=== PATIENT | male | born 2000 | race Hispanic/Latino ===

== ENCOUNTER 2023-06-05 15:13 | Emergency (ER) | payer SELFPAY ==
[2023-06-05] MEDS ORDERED: Lidocaine 1% (PF) 30 ML VIAL ONE (16:08)
[2023-06-05] MEDS ORDERED: Boostrix 0.5 ML (Tdap) VIAL (>/=7 yrs of age) ONE (16:09)
[2023-06-05] MEDS ORDERED: Bacitracin 1 PK ONE (17:40)
== END 2023-06-05 17:53 | disposition home or self-care (01) ==
LOC: NAV ERS 15:13
DX: S61.012A Laceration without foreign body of left thumb without damage to nail, initial encounter (principal); W26.8XXA Contact with other sharp object(s), not elsewhere classified, initial encounter; Z23 Encounter for immunization
CPT/HCPCS: 12042; 90471; 90715; J2001

== ENCOUNTER 2023-06-15 09:41 | Emergency (ER) | payer SELFPAY | END 2023-06-15 10:14 | disposition home or self-care (01) | LOC: NAV ERS 09:41 | DX: S61.012D Laceration without foreign body of left thumb without damage to nail, subsequent encounter (principal); X58.XXXD Exposure to other specified factors, subsequent encounter ==